=== PATIENT | female | born 1985 | race Hispanic/Latino ===

== ENCOUNTER 2017-08-25 09:02 | Observation (INO) | payer BC ==
--- NOTE | 2017-08-25 09:29 | ED PDOC ---
Lower Extremity Pain/Injury Time Seen by Provider: 08/25/17 09:20 Chief Complaint (Nursing): Lower Extremity Problem/Injury History Per: Patient History/Exam Limitations: no limitations Onset/Duration Of Symptoms: Mins (prior to arrival) Current Symptoms Are (Timing): Still Present Additional Complaint(s): Melida is a 32 y/o female who presents to the ED for evaluation of a left ankle injury. While sitting at her desk at work, she reports the office chair gave out so that she fell and injured the left ankle. Patient now complaining of left ankle pain. PMD: None Past Medical History Vital Signs: Last Vital Signs Temp 98.1 F 08/25/17 09:04 Pulse 81 08/25/17 09:04 Resp 16 08/25/17 09:04 BP 158/106 H 08/25/17 09:04 Pulse Ox 98 08/25/17 09:04 - Medical History PMH: HTN (since childhood), Hypothyroidism (s/p throidectomy for thyroid Ca) - Surgical History Other surgeries: Total thyroidectomy - Family History Family History: States: Unknown Family Hx - Social History Current smoker - smoking cessation education provided: Yes Alcohol: None Drugs: Denies - Home Medications Home Medications: Ambulatory Orders Medication Instructions Recorded Acetaminophen/Oxycodone Hydr 1 tab PO Q6 PRN #5 tab 10/06/14 [Percocet 325 mg-5 mg] Ibuprofen [Motrin] 600 mg PO Q6 PRN #10 tab 10/06/14 - Allergies Allergies/Adverse Reactions: Allergies Allergy/AdvReac Type Severity Reaction Status Date / Time amoxicillin Allergy ANGIOEDEMA Verified 08/25/17 09:28 Penicillins Allergy ANGIOEDEMA Verified 08/25/17 09:29 Review of Systems ROS Statement: Except As Marked, All Systems Reviewed And Found Negative Musculoskeletal: Positive for: Foot Pain (Left ankle) Physical Exam - Reviewed Nursing Documentation Reviewed: Yes Vital Signs Reviewed: Yes - Physical Exam Appears: Positive for: Non-toxic, No Acute Distress Head Exam: Positive for: ATRAUMATIC, NORMAL INSPECTION, NORMOCEPHALIC Skin: Positive for: Normal Color, Warm, Dry Eye Exam: Positive for: EOMI, Normal appearance, PERRL Neck: Positive for: Normal, Painless ROM Pulses-Dorsalis Pedis (L): 2+ Pulses-Dorsalis Pedis (R): 2+ Extremity: Positive for: Tenderness (to left ankle on palpation), Deformity Neurologic/Psych: Positive for: Alert, Oriented. Negative for: Motor/Sensory Deficits - ECG O2 Sat by Pulse Oximetry: 98 (RA) Pulse Ox Interpretation: Normal - Radiology X-Ray: Interpreted by Me, Viewed By Me X-Ray Interpretation: Other (Dislocation, no evidence of fracture) Medical Decision Making Medical Decision Making: Time: 9:30 Initial Plan: --X-Ray Left Foot --X-Ray Left Ankle --Tylenol 975 mg PO --Podiatry paged for consult Time: 11:25 --Podiatry and Anesthesiology at bedside --Reduction of ankle completed Time: 11:31 --Patient admitted to ED-OBS s/p sedation for ankle dislocation reduction Scribe Attestation: Documented by Veronica Abbasi, acting as a scribe for Zeinab Rahman MD Provider Scribe Attestation: All medical record entries made by the Scribe were at my direction and personally dictated by me. I have reviewed the chart and agree that the record accurately reflects my personal performance of the history, physical exam, medical decision making, and the department course for this patient. I have also personally directed, reviewed, and agree with the discharge instructions and disposition. ED OBSERVATION Discharge: Yes Date of observation admission: 08/25/17 Time of observation admission: 11:31 - Observation admission statement Patient is placed on observation because of need: for further pain management - Goals of Observation Goals of Observation: Improvement of pain - Progress Note Time:: 11:31 (Patient is resting, s/p sedation for procedure) Observation Progress Note: Patient is awake,vitals are stable,speech is clear and gait is steady Progress Note: 08/25/17 Time: 12:24 Repeat X-Ray Left Ankle: FINDINGS: BONES: Cast obscures fine bony details. There is redemonstration of acute mildly distracted fracture in the medial malleolus. Bone alignment is normal. JOINTS: The ankle mortise is not widened. Talar dome intact SOFT TISSUES: There is severe periarticular soft tissue swelling. OTHER FINDINGS: None. IMPRESSION: Acute mildly distracted fracture in the medial malleolus. No evidence of dislocation. Severe periarticular soft tissue swelling. Time: 13:00 --Patient continues to rest. Vital signs stable. Time: 14:30 --Patient continuing to rest with stable vitals. Time: 16:00 --Patient continues to rest. Vital signs stable. Disposition - Clinical Impression Clinical Impression: Ankle fracture, Ankle dislocation - Patient ED Disposition Is Patient to be Admitted: No Doctor Will See Patient In The: Office Counseled Patient/Family Regarding: Need For Followup, Rx Given - Disposition Disposition: Routine/Home Disposition Time: 16:24 Condition: STABLE - POA Present On Arrival: Falls Or Trauma
[2017-08-25] MEDS ORDERED: Midazolam 2 MG/2 ML VIAL ONE (11:12)
[2017-08-25] MEDS ORDERED: Lidocaine 2% Inj (20ml) IJ ONE (11:12)
[2017-08-25] MEDS ORDERED: Propofol 10 mg/ml Inj (20 ML) ONE (11:12)
[2017-08-25] MEDS ORDERED: Lidocaine 2% Inj (20ml) ONE (11:21)
--- NOTE | 2017-08-25 11:55 | RAD ---
PROCEDURE: Left Ankle Radiographs. HISTORY: deformity COMPARISON: None FINDINGS: BONES: There is an acute displaced fracture in the medial malleolus. Bone mineralization is normal. JOINTS: There is dislocation of the ankle joint. SOFT TISSUES: Periarticular soft tissue swelling. OTHER FINDINGS: None. IMPRESSION: Acute displaced fracture in the medial malleolus and dislocation of the ankle joint.
--- NOTE | 2017-08-25 12:00 | RAD ---
PROCEDURE: Left Ankle Radiographs. HISTORY: s/p left ankle closed reduction COMPARISON: None FINDINGS: BONES: There is redemonstration of acute displaced fracture in the medial malleolus with 3 mm distraction of fracture fragments. Bone mineralization is normal. JOINTS: Status post close reduction there is near normal bone alignment. The ankle mortise is not widened. SOFT TISSUES: There is severe periarticular soft tissue swelling and density in the lateral soft tissues which may represent a hematoma. OTHER FINDINGS: None. IMPRESSION: Successful closed reduction of dislocated ankle joint. Near normal bone alignment. Acute displaced fracture in the medial malleolus.
[2017-08-25] MEDS ORDERED: Midazolam 2 MG/2 ML VIAL IV ONE (12:22)
--- NOTE | 2017-08-25 12:26 | RAD ---
PROCEDURE: Left Ankle Radiographs. HISTORY: s/p left ankle closed reduction COMPARISON: Plain radiographs performed earlier the same day FINDINGS: BONES: Cast obscures fine bony details. There is redemonstration of acute mildly distracted fracture in the medial malleolus. Bone alignment is normal. JOINTS: The ankle mortise is not widened. Talar dome intact SOFT TISSUES: There is severe periarticular soft tissue swelling. OTHER FINDINGS: None. IMPRESSION: Acute mildly distracted fracture in the medial malleolus. No evidence of dislocation. Severe periarticular soft tissue swelling.
[2017-08-25] MEDS ORDERED: Propofol 10 mg/ml Inj (20 ML) IV ONE (12:28)
[2017-08-25 14:35] VITALS: RESP 18
--- NOTE | 2017-08-25 15:50 | RAD ---
PROCEDURE: Radiographs of the left tibia and fibula. HISTORY: s/p left ankle closed reduction COMPARISON: None available. TECHNIQUE: Frontal and lateral views obtained. FINDINGS: BONES: There is an acute displaced fracture in the medial malleolus. Bone alignment and mineralization are normal. JOINT SPACES: Unremarkable. OTHER FINDINGS: There is significant periarticular soft tissue swelling at the ankle joint IMPRESSION: Acute displaced fracture in the medial malleolus. No evidence of proximal fracture.
--- NOTE | 2017-08-25 16:24 | CT ---
PROCEDURE: CT scan of the left ankle without intravenous contrast INDICATION: TECHNIQUE: Multiple axial images were obtained with slice thickness of 2.5 mm. Coronal and sagittal reformatted images were obtained. Iterative reconstruction was used. Radiation dose: Total exam DLP = mGy-cm. This CT exam was performed using one or more of the following dose reduction techniques: Automated exposure control, adjustment of the mA and/or kV according to patient size, and/or use of iterative reconstruction technique. COMPARISON: Plain radiographs performed earlier the same FINDINGS: There is an acute comminuted mildly displaced distracted fracture in the medial malleolus with 4 mm distraction of fracture fragments. No significant angulation. Bone mineralization is normal. Bone alignment is normal. The ankle mortise is not widened. There is no joint effusion. There is significant periarticular soft tissue swelling and subcutaneous edema. There is increased density in the lateral subcutaneous tissue which likely represents hematoma. IMPRESSION: Acute comminuted mildly displaced fracture in the medial malleolus with 4 mm distraction of fracture fragments. No significant of angulation. No evidence of dislocation. Moderate periarticular soft tissue swelling, subcutaneous edema and hematoma in the lateral soft tissues.
[2017-08-25 16:51] VITALS: TEMP 98.3; O2SAT 99
--- NOTE | 2017-08-25 17:40 | CP.PCM.CON ---
History of Present Illness - History of Present Illness History of Present Illness: Podiatry Consult Note - Dr. Root 32 year old female patient seen in ED concerning left ankle dislocation. Patient states at 8:00 this morning, patient was leaning against a rolling chair and reports the chair broke underneath her, causing her to fall and dislocate her ankle. Patient reports 10/10 pain, but denies numbness, burning, or tingling. Patient has not had anything to eat today, but admits she had a cup of apple juice and some coffee at 8:00. Patient states she was given pain medication for alleviation of some symptoms. Patient denies N/V/F/D/C/SOB. No other pedal complaints at this time. PMH: HTN since childhood, hypothyroidism s/p thyroid cancer PSH: total thyroidectomy, knee scope x2, ACL repair FH: noncontributory SH: 1/2 PPD smoker for 10 years Meds: see med list All: amoxicillin, penicillins Review of Systems - Review of Systems All systems: reviewed and no additional remarkable complaints except (as per HPI ) Past Patient History - Past Social History Alcohol: None Drugs: Denies - CARDIAC Hx Hypertension: Yes (since childhood) - ENDOCRINE/METABOLIC Hx Hypothyroidism: Yes (s/p throidectomy for thyroid Ca) - MUSCULOSKELETAL/RHEUMATOLOGICAL Other/Comment: Hx of bilateral wrist fracture in childhood - PSYCHIATRIC Hx Substance Use: No - SURGICAL HISTORY Other/Comment: Right knee ACL surgery - ANESTHESIA Hx Anesthesia: Yes Hx Anesthesia Reactions: No Meds Home Medications: Home Medication List Medication Instructions Recorded Confirmed Type Acetaminophen [Tylenol 325mg tab] 650 mg PO Q6H PRN #50 tab 08/25/17 Rx Metoprolol Tartrate [Lopressor] 50 mg PO DAILY #15 tab 08/25/17 Rx Naproxen [Naprosyn] 500 mg PO BID PRN #20 tablet 08/25/17 Rx Non-Formulary 1 ea AD ONCE #1 ea 08/25/17 Rx Allergies/Adverse Reactions: Allergies Allergy/AdvReac Type Severity Reaction Status Date / Time amoxicillin Allergy ANGIOEDEMA Verified 08/25/17 09:28 Penicillins Allergy ANGIOEDEMA Verified 08/25/17 09:29 Physical Exam - Constitutional Appears: Well, Non-toxic, No Acute Distress - Extremities Exam Additional comments: VASC: DP and PT pulses palpable 2/4 b/l. CFT <3 seconds to al digits x10. TG wnl. Edema noted to left ankle joint. NEURO: Gross sensation intact bilaterally. DERM: No open lesions noted. No ecchymosis noted. Skin tenting to left lateral ankle joint. ORTHO: Left ankle joint dislocation. Pain on palpation left ankle joint. - Neurological Exam Neurological exam: Alert, Oriented x3 - Psychiatric Exam Psychiatric exam: Anxious Results - Vital Signs Recent Vital Signs: Last Vital Signs Temp 98.3 F 08/25/17 16:50 Pulse 79 08/25/17 16:50 Resp 18 08/25/17 16:50 BP 183/100 H 08/25/17 16:50 Pulse Ox 99 08/25/17 16:50 Assessment & Plan - Assessment and Plan (Free Text) Assessment: 32 year old female patient left ankle dislocation and medial malleolus fracture 2/2 mechanical fall Plan: Patient seen and evaluated in ED Discussed with attending, Dr. Dk Vences foot and ankle XR reviewed: Acute displaced fracture in medial malleolus and dislocation of ankle joint Consented patient for left ankle closed reduction - Explained to patient procedure, risks, benefits, complications, and alternatives to procedure; patient wishes to proceed 1% lidocaine ordered - left ankle block administered Left ankle closed reduction performed under conscious sedation. Patient tolerated the anesthesia and procedure well - s/p dislocation, DP pulse palpable 2/4 b/l. DP and PT pulses biphasic on doppler examination. CFT <3 seconds to all digits x5 Post reduction XR reviewed: Acute mildly distracted fracture in the medial malleolus. No evidence of dislocation. Severe periarticular ST swelling Left tib/fib XR reivewed: negative for acute fracture Left ankle CT reviewed: Acute mildly displaced fracture in the medial malleolus with 4mm distraction of fracture fragments. No significant angulation. No evidence of dislocation. AO splint applied to LLE. Patient to be NWB LLE with the assistance of crutches Recommend RICE therapy Patient to follow up with Dr. Root in office 1 week Stable per podiatry standpoint Thank you for the consult, please reconsult podiatry as needed
[2017-08-25 19:41] VITALS: BP 142/86; PULSE 74
--- NOTE | 2017-08-26 09:25 | RAD ---
PROCEDURE: Left Foot Radiographs. HISTORY: deformity COMPARISON: None. FINDINGS: BONES: There is an acute displaced fracture in the medial malleolus and dislocation of the ankle joint. There is no acute displaced fracture in the foot. JOINTS: Normal. SOFT TISSUES: Normal. OTHER FINDINGS: None. IMPRESSION: No acute displaced fracture or dislocation in the foot. Dislocation of the ankle joint with acute displaced fracture in the medial malleolus.
== END 2017-08-25 16:24 | disposition home or self-care (01) ==
LOC: H.ER 09:02 → H.EROBSV 11:31
PROVIDERS: ADMIT Emergency Medicine; ATTEND Emergency Medicine
DX: S82.52XA Displaced fracture of medial malleolus of left tibia, initial encounter for closed fracture (principal); W07.XXXA Fall from chair, initial encounter; E03.9 Hypothyroidism, unspecified; F17.210 Nicotine dependence, cigarettes, uncomplicated; I10 Essential (primary) hypertension; S93.05XA Dislocation of left ankle joint, initial encounter; Z79.899 Other long term (current) drug therapy
CPT/HCPCS: 27762; 73590; 73610; 73630; 73700; 81025; 94770; 96374; 99285; G0378; J2250; J2704; J3010

== ENCOUNTER 2018-07-19 20:39 | Emergency (ER) | payer BC ==
[2018-07-19 20:50] VITALS: BP 104/65; PULSE 61; RESP 18; TEMP 98.6; O2SAT 98
--- NOTE | 2018-07-19 21:41 | ED PDOC ---
HPI: General Adult Time Seen by Provider: 07/19/18 21:13 Chief Complaint (Nursing): Trauma Chief Complaint (Provider): head injury History Per: Patient History/Exam Limitations: no limitations Onset/Duration Of Symptoms: Sudden Onset Additional Complaint(s): 33 year old female arrives to ED for an evaluation of injury to the back of her head after hitting it against a metal rack on the wall prior to arrival. She denies any active bleeding or LOC. PMD: [facility] Past Medical History Reviewed: Historical Data, Nursing Documentation, Vital Signs Vital Signs: Last Vital Signs Temp 98.6 F 07/19/18 20:46 Pulse 61 07/19/18 20:46 Resp 18 07/19/18 20:46 BP 104/65 07/19/18 20:46 Pulse Ox 98 07/19/18 21:50 - Medical History PMH: HTN (since childhood), Hypothyroidism (s/p throidectomy for thyroid Ca) - Family History Family History: States: Unknown Family Hx - Home Medications Home Medications: Ambulatory Orders Medication Instructions Recorded Acetaminophen/Oxycodone Hydr 1 tab PO Q6 PRN #5 tab 10/06/14 [Percocet 325 mg-5 mg] Ibuprofen [Motrin] 600 mg PO Q6 PRN #10 tab 10/06/14 Acetaminophen [Tylenol 325mg tab] 650 mg PO Q6H PRN #50 tab 08/25/17 Metoprolol Tartrate [Lopressor] 50 mg PO DAILY #15 tab 08/25/17 Naproxen [Naprosyn] 500 mg PO BID PRN #20 tablet 08/25/17 Non-Formulary 1 ea AD ONCE #1 ea 08/25/17 - Allergies Allergies/Adverse Reactions: Allergies Allergy/AdvReac Type Severity Reaction Status Date / Time amoxicillin Allergy ANGIOEDEMA Verified 08/25/17 09:28 Penicillins Allergy ANGIOEDEMA Verified 08/25/17 09:29 Review of Systems ROS Statement: Except As Marked, All Systems Reviewed And Found Negative Neurological: Positive for: Headache (head injury to back to scalp). Negative for: Other (active bleed or LOC) Physical Exam - Reviewed Nursing Documentation Reviewed: Yes Vital Signs Reviewed: Yes - Physical Exam Appears: Positive for: Well, Non-toxic, No Acute Distress Head Exam: Positive for: NORMOCEPHALIC. 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 Negative for: Motor/Sensory Deficits, Aphasia, Facial Droop - ECG O2 Sat by Pulse Oximetry: 98 (RA) Pulse Ox Interpretation: Normal Disposition - Clinical Impression Clinical Impression: Head injury, Scalp abrasion - Patient ED Disposition Is Patient to be Admitted: No Counseled Patient/Family Regarding: Diagnosis, Need For Followup - Disposition Disposition: Routine/Home Disposition Time: 21:40 Condition: GOOD Instructions: Minor Head Injury Forms: [facility] (Congolese)
== END 2018-07-19 22:01 | disposition home or self-care (01) ==
LOC: H.ER 20:39
DX: S09.90XA Unspecified injury of head, initial encounter (principal); S00.01XA Abrasion of scalp, initial encounter; W22.8XXA Striking against or struck by other objects, initial encounter; Y92.89 Other specified places as the place of occurrence of the external cause; E03.9 Hypothyroidism, unspecified; I10 Essential (primary) hypertension; Z88.0 Allergy status to penicillin